=== PATIENT | male | born 1985 | race Caucasian/White ===

== ENCOUNTER 2020-07-11 19:12 | Emergency (ER) | payer MEDICAID, OTHER, SELFPAY ==
[2020-07-11 19:45] VITALS: BP 125/72; PULSE 61; RESP 16; TEMP 37.1; O2SAT 98; BMI 30.9
--- NOTE | 2020-07-11 20:40 | ED_ITS ---
HPI - Ear Problem General Chief complaint: Ear Problems Stated complaint: ear pain Time Seen by Provider: 07/11/20 20:19 Source: patient Mode of arrival: ambulatory Limitations: no limitations History of Present Illness HPI Narrative: Patient presents to ED for right ear pain. Patient has decreased hearing. Patient has yellow discharge from right ear. Family member states patient has history of multiple ear infections. Patient and family member denies any recent trauma to the ear or head. Related Data Previous Rx's Medication Instructions Recorded amoxicillin-pot clavulanate 1 tab PO Q12H #20 tab 07/11/20 [Augmentin] [id number] 4 drp OTIC (EAR) RIGHT TID 10 Days 07/11/20 [Cortisporin-TC] #10 ml Allergies Allergy/AdvReac Type Severity Reaction Status Date / Time No Known Allergies Allergy Verified 07/11/20 19:51 Review of Systems Review of Systems: Yes all other systems are reviewed and are negative Constitutional: Constitutional: Reports as per HPI and Reports no additional constitutional complaints Eyes: Eyes: Reports as per HPI and Reports no additional eye complaints ENT: Reports system reviewed and no additional complaints, except as documented, Reports as per HPI, Reports ear discharge (right ear) and Reports otalgia (right ear) Cardiovascular: Cardiovascular: Reports as per HPI and Reports no additional cardiovascular complaints Respiratory: Respiratory: Reports as per HPI and Reports no additional respiratory complaints Gastrointestinal: Gastrointestinal: Reports as per HPI and Reports no additional gastrointestinal complaints Genitourinary: Genitourinary: Reports no additional male genitourinary complaints and Reports as per HPI Musculoskeletal: Musculoskeletal: Reports no additional musculoskeletal complaints and Reports as per HPI Neurologic: Reports system reviewed and no additional complaints, except as documented and Reports as per HPI Psychiatric: Psychiatric: Reports no additional psychiatric complaints and Reports as per HPI [facility] Past Medical History Medical History (Updated 07/12/20 @ 00:01 by Background Daemon) No known health problems Social History Social History Advance Directives: No Advance Directives Information Provided: Yes Physical Exam Vital Signs: Vital Signs: Last Vital Signs Temp 98.7 F 07/11/20 19:45 Pulse 61 07/11/20 19:45 Resp 16 07/11/20 19:45 BP 125/72 07/11/20 19:45 Pulse Ox 98 07/11/20 19:45 Body Mass Index 30.9 Const: General: cooperative, healthy appearing, comfortable, no acute distress, well developed, alert and awake Orientation/consciousness: patient oriented x3 HENMT: Other: Right ear tympanic membrane red and bulging. Right ear canal swollen and red. Slight yellow pus discharge. Negative for signs of mastoiditis Head: Yes normal to inspection and Yes No palpable skull fracture present Ears: hearing grossly normal bilaterally, external ears normal and Abnormal EAC present (Swollen red with yellow pus) Eyes: General: appearance normal, both eyes and all related structures Neck: Neck: Yes normal visual inspection and Yes full ROM Chest: Chest palpation & inspection: normal inspection of the chest and normal palpation of entire chest wall Resp: Effort & Inspection: normal respiratory effort and able to speak in complete sentences Auscultation: clear to auscultation bilaterally Cardio: Jugular venous distension: no JVD Heart sounds: S1 normal heart sound present and S2 normal heart sound present GI: Inspection: Yes normal to inspection and No abdominal wall ecchymosis Palpation (GI): Soft to palpation, not firm, nontender, no guarding and not rigid : General: No CVA tenderness and Yes no CVA tenderness Back/Spine/Pelvis: Back: no CVA tenderness, No CVA tenderness and No back tenderness Skin: General skin exam: no rashes or lesions noted and elasticity normal Neuro: General: patient oriented x3, gait normal and CN's II-XI intact bilaterally Cranial nerves: Yes CN's II-XII intact bilaterally Extrem: General: Yes normal to inspection and Yes full ROM Psych: Appearance: grossly normal and well kempt Course Course Course Narrative: Patient has otitis media/otitis externa. Reevaluation(s) Reevaluation #1: Patient will be discharged with oral and ear drop antibiotics. Patient and family member informed I will give him referral for ENT. MDM - Ear MDM Narrative Medical decision making narrative: otits media/externa Discharge Plan Discharge Clinical Impression: Otitis externa, Otitis media Patient Disposition: Home, Self-Care Instructions: Otitis Externa (ED), Ear Infection (ED) Additional Instructions: Regrese al servicio de urgencias inmediatamente si tiene enrojecimiento e hinchaz?n marleni o detr?s de la oreja, empeoramiento del dolor de o?do, aumento de la secreci?n del o?do derecho, sangrado del o?do, fiebre, dolor de jaylan, escalofr?os o cualquier otro s?ntoma preocupante. Prescriptions: New amoxicillin-pot clavulanate [Augmentin] 875-125 mg tablet 1 tab PO Q12H Qty: 20 RF: 0 Cortisporin-TC 3.3-3-10-0.5 mg/mL drops,suspension 4 drp otic (ear) right TID 10 Days Qty: 10 RF: 0 Referrals: Petar Wagner [Physician] - 2 days (Recurring ear infection) Interventions: ED Discharge Assessment Last Done: 07/11/20 21:08 Discharge Date/Time: 07/11/20 21:09 Print Language: Polish
== END 2020-07-11 21:09 | disposition home or self-care (01) ==
PROVIDERS: Emergency Provider Internal Medicine
DX: H66.91 Otitis media, unspecified, right ear (principal); H60.91 Unspecified otitis externa, right ear
CPT/HCPCS: 99283